=== PATIENT | male | born 2000 | race Caucasian/White ===

== ENCOUNTER → 2024-05-23 13:45 | Outpatient (REF) | payer BC, SELFPAY | LOC: RCS 13:45 | PROVIDERS: ATTENDING PHYSICIAN Physician Assistant Medical; FAMILY PHYSICIAN Family Medicine | DX: I48.0 Paroxysmal atrial fibrillation (principal); I11.9 Hypertensive heart disease without heart failure | CPT/HCPCS: 93306 ==